=== PATIENT | female | born 1945 | race Asian ===

== ENCOUNTER 2024-08-04 15:29 | Emergency (ER) | payer MEDICAID ==
[~2024-08-04] VITALS: Ht 157.5 cm; Wt 59.0 kg
[2024-08-04 15:33] VITALS: BP 180/77; TEMP 98.8; O2SAT 99
[2024-08-04 15:39] VITALS: PULSE 79; RESP 20; O2SAT 99
== END 2024-08-04 17:54 | disposition left against medical advice (07) ==
LOC: ER 15:29
DX: R06.02 Shortness of breath (principal); E11.9 Type 2 diabetes mellitus without complications; E78.00 Pure hypercholesterolemia, unspecified; I10 Essential (primary) hypertension; Z86.718 Personal history of other venous thrombosis and embolism; Z53.21 Procedure and treatment not carried out due to patient leaving prior to being seen by health care provider